=== PATIENT | male | born 1995 | race African-American/Black ===

== ENCOUNTER 2017-12-11 02:40 | Emergency (ER) | payer SELFPAY ==
[~2017-12-11] VITALS: Ht 185.4 cm; Wt 83.0 kg
[2017-12-11] MEDS ORDERED: IBUPROFEN 800MG TABLET PO ONE (08:15)
[2017-12-11 09:08] VITALS: BP 115/79
== END 2017-12-11 09:14 | disposition home or self-care (01) ==
LOC: ER 02:40
DX: S09.90XA Unspecified injury of head, initial encounter (principal); S30.0XXA Contusion of lower back and pelvis, initial encounter; S80.12XA Contusion of left lower leg, initial encounter; V49.40XA Driver injured in collision with unspecified motor vehicles in traffic accident, initial encounter; Y93.89 Activity, other specified; Y92.410 Unspecified street and highway as the place of occurrence of the external cause
CPT/HCPCS: 99282